=== PATIENT | female | born 1980 | race Caucasian/White ===

== ENCOUNTER 2018-09-25 11:57 | Outpatient (CLI) | payer MEDICAID, SELFPAY ==
--- NOTE | 2018-09-25 10:37 | DI.RAD_ITS ---
SYMPTOM/DIAGNOSIS: RT SHOULDER PAIN, M25.511 RIGHT SHOULDER: Five views were obtained. No bony or soft tissue abnormality is seen.
== END 2018-09-25 12:17 ==
PROVIDERS: PCP Nurse Practitioner; Visit Provider Nurse Practitioner
DX: M25.511 Pain in right shoulder (principal)
CPT/HCPCS: 73030

== ENCOUNTER 2018-10-01 12:54 | Emergency (ER) | payer MEDICAID, SELFPAY ==
[2018-10-01 13:01] VITALS: BP 120/66; PULSE 76; RESP 16; TEMP 36.6; O2SAT 99
--- NOTE | 2018-10-01 13:11 | W.ED.GENAD ---
Discharge Plan Disposition Patient Disposition: HOME Condition: Good Discharge Details Chief Complaint: Laceration Clinical Impression: Laceration of left middle finger Reason For Visit: lac Primary Care Provider: Mariel Kirkpatrick ED Provider: Karthik Casas Home Meds and New Rx's Prescriptions: Continue trazodone 50 mg tablet 50 mg PO HS Qty: 90 RF: 3 sertraline 100 mg tablet 150 mg PO DAILY Qty: 135 RF: 3 albuterol sulfate [ProAir HFA] 90 mcg/actuation HFA aerosol inhaler 2 puff Inhalation Q6H PRN Qty: 1 RF: 12 Discharge Instructions Instructions: Finger Laceration (ED) Additional Instructions: return to the emergency department in 7 days for suture removal. Return sooner if you have severe pain, redness spreading down the finger or yellow/white discharge from the wound Discharge Data Discharge Physician: Karthik Casas Medical Decision Making pt was cutting pumpking earlier and accidentally cut pad of left middle finger. No other injuries, states she is utd on tetanus vaccine. No evidence of tendon injury on exam. Will suture and d/c Differential Diagnosis laceration, abrasion HPI General Mode of arrival: ambulatory. Date/Time Provider Initiated Documentation: 10/01/18 13:05. Limitations to Documentation: no limitations. Information obtained by: patient. History of Present Illness 38 year old F presents to the emergency department with the chief complaint of left middle finger laceration, described as mild, with intensity rated at 2. Quality is described as aching, and is localized to the left and upper extremity. Patient started experiencing this hour(s) and it has been constant. No relieving factors improve symptom(s), No exacerbating factors reported . Patient notes no other symptoms.. Patient did receive the following treatments prior to arrival, none Related Data Home Medications Medication Instructions Recorded Confirmed albuterol sulfate HFA 90 2 puff INHALATION Q6H PRN #1 gm 09/25/18 10/01/18 mcg/actuation aerosol inhaler sertraline 100 mg tablet 150 mg PO DAILY #135 tab-cap 09/25/18 10/01/18 trazodone 50 mg tablet 50 mg PO HS #90 tab 09/25/18 10/01/18 Previous Rx's Medication Instructions Recorded albuterol sulfate HFA 90 2 puff INHALATION Q6H PRN #1 gm 10/25/18 mcg/actuation aerosol inhaler sertraline 100 mg tablet 150 mg PO DAILY #135 tab-cap 09/25/18 trazodone 50 mg tablet 50 mg PO HS #90 tab 09/25/18 Allergies Allergy/AdvReac Type Severity Reaction Status Date / Time aspirin AdvReac Mild causes Verified 10/01/18 13:04 asthma General Stated Complaint: Laceration BRITANY: 4 Review of Systems Review of Systems All systems reviewed & are unremarkable except as noted in HPI and below Constitutional Denies chills, Denies fever(s) and Denies weakness ENT Denies change in voice Cardiovascular Denies chest pain and Denies dyspnea Respiratory Denies dyspnea Gastrointestinal Denies abdominal pain, Denies nausea and Denies vomiting Genitourinary Denies dysuria Musculoskeletal Denies joint swelling Integumentary/Breasts Denies rash Neurologic Denies weakness [facility] Family History Mother Alcohol abuse Father No problems noted. Sister Essential hypertension Grandmother Breast cancer Son No problems noted. Other Autism Medical History Encounter for supervision of other normal , third trimester (Acute 11/23/15) Depression (Acute 09/23/14) Anxiety (Acute 09/24/17) Nexplanon in place (03/26/16) Social History Smoking/Tobacco Use Status: Current every day Surgical History section Exam Const General: no acute distress Orientation: alert [facility] Head: normal to inspection Ears: external ears normal General nose exam: external nose normal Mouth: moist mucous membranes Eyes General: appearance normal, both eyes and all related structures Neck Neck: normal visual inspection Resp Effort & Inspection: normal respiratory effort and able to speak in complete sentences Cardio Rate: regular rate Skin General skin exam: no rashes or lesions noted Neuro General: alert and oriented x3 Extrem General: other (1.5cm laceration on pad of left middle finger, intact sensation and full rom in extension and flexion) Psych Mental Status: mental status grossly normal Course Vital Signs Temperature 36.6 C 10/01/18 13:01 Pulse 76 10/01/18 13:01 Respiratory Rate 16 10/01/18 13:01 Blood Pressure 120/66 10/01/18 13:01 Pulse Oximetry 99 10/01/18 13:01 Temperature 36.6 C 10/01/18 13:01 Pulse 76 10/01/18 13:01 Respiratory Rate 16 10/01/18 13:01 Blood Pressure 120/66 10/01/18 13:01 Pulse Oximetry 99 10/01/18 13:01 Oxygen Delivery Method Room Air 10/01/18 13:01 Oxygen Flow Rate 0 10/01/18 13:01 Procedures Laceration Laceration 1: Site: upper extremity Side (If applicable): left Size (cm): 1.5 Description: linear Depth: simple, single layer Local Anesthetic: Lidocaine 1% Amount of anesthesia used (mL): 3 Pre-repair: wound explored and irrigated extensively Skin layer closed with: vicryl Size (cm): 5-0 Number of sutures: 3 Technique: simple, interrupted
== END 2018-10-01 13:39 | disposition home or self-care (01) ==
PROVIDERS: Emergency Provider Emergency Medicine; PCP Nurse Practitioner
DX: S61.213A Laceration without foreign body of left middle finger without damage to nail, initial encounter (principal); W26.8XXA Contact with other sharp object(s), not elsewhere classified, initial encounter
CPT/HCPCS: 12001

== ENCOUNTER 2018-10-14 10:11 | Emergency (ER) | payer MEDICAID, SELFPAY ==
[2018-10-14 10:16] VITALS: BP 107/68; PULSE 75; RESP 16; TEMP 36.7; O2SAT 99
--- NOTE | 2018-10-14 10:16 | ED.GENADUL_ITS ---
Discharge Plan Disposition Patient Disposition: HOME Condition: Good Discharge Details Chief Complaint: SutureRem Clinical Impression: Encounter for removal of sutures Primary Care Provider: Mariel Kirkpatrick ED Provider: Karthik Casas Home Meds and New Rx's Prescriptions: No Action trazodone 50 mg tablet 50 mg PO HS Qty: 90 RF: 3 sertraline 100 mg tablet 150 mg PO DAILY Qty: 135 RF: 3 albuterol sulfate [ProAir HFA] 90 mcg/actuation HFA aerosol inhaler 2 puff Inhalation Q6H PRN Qty: 1 RF: 12 Discharge Instructions Instructions: Stitches Removal (ED) Medical Decision Making PT comes in for suture removal of finger, has full rom of the finger without redness or discharge or pain. N oevidence of infection and full rom so doubt tendon injury. 3 sutures removed without problems Differential Diagnosis suture removal HPI General Mode of arrival: ambulatory . Date/Time Provider Initiated Documentation: 10/14/18 10:11 . Limitations to Documentation: no limitations . Information obtained by: patient . History of Present Illness 38 year old F presents to the emergency department with the chief complaint of suture removal, described as mild, Patient started experiencing this week(s ) (1) and it has been constant. Patient notes no other symptoms.. Related Data Home Medications Medication Instructions Recorded Confirmed albuterol sulfate HFA 90 2 puff INHALATION Q6H PRN #1 gm 09/25/18 10/01/18 mcg/actuation aerosol inhaler sertraline 100 mg tablet 150 mg PO DAILY #135 tab-cap 09/25/18 10/01/18 trazodone 50 mg tablet 50 mg PO HS #90 tab 09/25/18 10/01/18 Previous Rx's Medication Instructions Recorded albuterol sulfate HFA 90 2 puff INHALATION Q6H PRN #1 gm 09/25/18 mcg/actuation aerosol inhaler sertraline 100 mg tablet 150 mg PO DAILY #135 tab-cap 09/25/18 trazodone 50 mg tablet 50 mg PO HS #90 tab 09/25/18 Allergies Allergy/AdvReac Type Severity Reaction Status Date / Time aspirin AdvReac Mild causes Verified 10/01/18 13:04 asthma General BRITANY: 4 Review of Systems Review of Systems All systems reviewed & are unremarkable except as noted in HPI and below Constitutional Denies chills, Denies fever(s) and Denies weakness Eyes Denies loss of vision ENT Denies change in voice Cardiovascular Denies chest pain and Denies dyspnea Respiratory Denies dyspnea Gastrointestinal Denies abdominal pain, Denies nausea and Denies vomiting Integumentary/Breasts Denies rash Neurologic Denies loss of vision and Denies weakness Exam Const General: no acute distress Orientation: alert [facility] Head: normal to inspection Ears: external ears normal General nose exam: external nose normal Mouth: moist mucous membranes Eyes General: appearance normal, both eyes and all related structures Neck Neck: normal visual inspection Resp Effort & Inspection: normal respiratory effort and able to speak in complete sentences Cardio Rate: regular rate Skin General skin exam: no rashes or lesions noted Neuro General: alert and oriented x3 Psych Mental Status: mental status grossly normal
== END 2018-10-14 10:20 | disposition home or self-care (01) ==
PROVIDERS: Emergency Provider Emergency Medicine; PCP Nurse Practitioner
DX: S61.213D Laceration without foreign body of left middle finger without damage to nail, subsequent encounter (principal); W26.8XXD Contact with other sharp object(s), not elsewhere classified, subsequent encounter; Z48.02 Encounter for removal of sutures

== ENCOUNTER 2019-09-18 19:47 | Emergency (ER) | payer MEDICAID, SELFPAY ==
[2019-09-18 19:50] VITALS: BP 113/69; PULSE 97; RESP 16; TEMP 37.1; O2SAT 97
--- NOTE | 2019-09-18 20:14 | ED.GENADUL_ITS ---
Discharge Plan Disposition Patient Disposition: HOME Condition: Good Discharge Details Chief Complaint: FacialProb Clinical Impression: Contusion of face, Nasal pain Primary Care Provider: Mariel Kirkpatrick ED Provider: Mario De Los Santos Home Meds and New Rx's Prescriptions: No Action trazodone 50 mg tablet 50 mg PO HS Qty: 90 RF: 3 sertraline 100 mg tablet 150 mg PO DAILY Qty: 135 RF: 3 albuterol sulfate [ProAir HFA] 90 mcg/actuation HFA aerosol inhaler 2 puff Inhalation Q6H PRN Qty: 1 RF: 12 Discharge Instructions Instructions: Nasal Fracture (ED), Contusion in Adults (ED) Additional Instructions: The CT scan shows no evidence of an acute fracture, bleed, or fracture around your eye. No indication for antibiotics. Maximum dose is for pain medications are 800 mg of ibuprofen every 6 hours which I would recommend taking with food. Please also add 1000 mg of Tylenol every 6 hours. These are different medications can be taken together, or alternate every 3 hours. Ice can also help. If you notice any worsening of your symptoms, or any new symptoms such as vomiting, diarrhea, fever, chills, shortness of breath, chest pain, numbness, weakness, or fainting , please return immediately to the emergency department for reevaluation. Please follow up with your primary care provider as soon as possible for reassessment and reevaluation. As always, it was a pleasure participating in your medical care today. Referrals: Mariel Kirkpatrick, [employer] [Primary Care Provider] - Medical Decision Making This is a pleasant 39-year-old female with a past medical history of reactive airway disease as well as previous fracture of her nose and subsequent deformity who presents today for pain and slight deformity of the nose at she noticed yesterday morning when she woke up. She denies any trauma, assault. She states that she feels safe at home. She does not recall any incident that brought it about. Physical exam demonstrates slightly deviated right nose, no evidence of nasal septal hematoma, mild to moderate tenderness over the medial mid aspect of the nasal bridge as well as the medial aspect of the right lower orbit. No evidence of entrapment, hyphema, or other significant abnormality or trauma. Remainder of exam is otherwise unremarkable. She certainly does clinically demonstrate evidence of slight worsening of her chronic nasal fracture. We did discuss reduction although I do not think this would be significantly beneficial. At this time she would like to hold off on reduction as it has been greater than 24 hours since the event occurred. Will recommend Tylenol in addition to ibuprofen. Because of the tenderness over her right medial inferior orbit I am concerned for potential orbital fracture as well. With concern for fracture this does certainly increase the potential need for antibiotics. I do feel that CT scan is indicated to rule out acute fracture of this area. 8:[address] scan results have returned and per virtual radiology there is no evidence of acute fracture or dislocation. No evidence of intracranial bleed, no evidence of significant orbital fracture or entrapment. Signs and symptoms are clinically consistent with a contused nose, potential mild fracture. No indication for antibiotic use. We will recommend maximum dose NSAIDs at home, no indication for antibiotics at this time. Recommend close follow-up with PCP. Discussed red flags which to return. I have extensively reviewed the treatment plan and discharge instructions with the patient. I have addressed all patient concerns at this time. The patient was made aware of what symptoms to monitor for that would warrant a return to the emergency department. Discussed the plan with the patient, they demonstrate verbal understanding and agreement with our assessment and plan at this time. Exam(s) PROCEDURE INFORMATION: Exam: CT Maxillofacial Without Contrast Exam date and time: 09/18/2019 20:10 Clinical history: 39 years old, female; Face pain TECHNIQUE: Imaging protocol: Computed tomography images of the face without contrast. Radiation optimization: All CT scans at this facility use at least one of these dose optimization techniques: automated exposure control; mA and/or kV adjustment per patient size (includes targeted exams where dose is matched to clinical indication); or iterative reconstruction. COMPARISON: No relevant prior studies available. FINDINGS: Orbits: Orbits are normal. Globes are unremarkable. Sinuses: The ostiomeatal unit is patent bilaterally. Moderate-sized benign-appearing retention cyst in the left maxillary sinus. Minor mucosal thickening in the ethmoid air cells and frontal sinuses. Bones/joints: No acute maxillofacial fracture. Significant rightward deviation of the base of the nasal septum/maxillary spine, however no definite cortical step-off. Associated 5 mm right word deviation of the midportion of the right nasal septum. 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 Nasal cavity: Bilateral maryanne bullosa. Soft tissues: Unremarkable. IMPRESSION: 1. No acute maxillofacial fracture. A nonacute appearing deformity of the nasal septum and maxilla described. 2. Sinus disease. PROCEDURE INFORMATION: Exam: CT Head Without Contrast Exam date and time: 09/18/2019 20:10 Clinical history: 39 years old, female; Face pain TECHNIQUE: Imaging protocol: Computed tomography of the head without contrast. Radiation optimization: All CT scans at this facility use at least one of these dose optimization techniques: automated exposure control; mA and/or kV adjustment per patient size (includes targeted exams where dose is matched to clinical indication); or iterative reconstruction. COMPARISON: No relevant prior studies available. FINDINGS: Brain: No hemorrhage. No significant white matter disease. No edema. Ventricles: No ventriculomegaly. Bones/joints: No acute fracture. Sinuses: Regarding the paranasal sinuses please see maxillofacial CT. Mastoid air cells: No mastoid effusion. Soft tissues: No suspicious lesions. IMPRESSION: No acute intracranial findings. Dictated and Authenticated by: Maria T Cornejo MD. Ordering:OMEGA Martin MD HPI General Date/Time Provider Initiated Documentation: 09/18/19 19:53 . HPI Narrative: This is a 39-year-old female with a past medical history of reactive airway disease, and a previous broken nose who presents today for facial pain. Patient states that yesterday morning she woke up and noticed significant pain on the bridge of her nose, slight deformity of her nose. She had pain around her right orbit, and mild swelling and bruising in this area. She states that the nose feels slightly deformed compared to normal, however she does have a chronic deformity secondary to an old fracture. She denies any pain with movement of her eyes, vision changes, headache, neck pain, chest pain. She denies any trauma, falls, or trauma during her sleep. She denies any other complaints at this time. No other modifying factors. She has taken 800 mg of ibuprofen 3 times a day the last 24 hours with no significant improvement of her symptomatology. She denies any bloody nose, discharge, cough, shortness of breath. No other complaints at this time. Related Data Home Medications Medication Instructions Recorded Confirmed albuterol sulfate 90 mcg/actuation 2 puff INHALATION Q6H PRN #1 gm 09/25/18 09/18/19 aerosol inhaler sertraline 100 mg tablet 150 mg PO DAILY #135 tab-cap 09/25/18 09/18/19 trazodone 50 mg tablet 50 mg PO HS #90 tab 09/25/18 09/18/19 Previous Rx's Medication Instructions Recorded albuterol sulfate 90 mcg/actuation 2 puff INHALATION Q6H PRN #1 gm 09/25/18 aerosol inhaler sertraline 100 mg tablet 150 mg PO DAILY #135 tab-cap 09/25/18 trazodone 50 mg tablet 50 mg PO HS #90 tab 09/25/18 Allergies Allergy/AdvReac Type Severity Reaction Status Date / Time aspirin AdvReac Mild causes Verified 09/18/19 19:54 asthma General Stated Complaint: FacialProb BRITANY: 4 Review of Systems Review of Systems ROS Unobtainable: All systems reviewed & are unremarkable except as noted in HPI and below PFSH Surgical History (Updated 09/25/18 @ 10:02 by Mariel Kirkpatrick NP) section x4, last in 2011 Social History Smoking/Tobacco Use Status: Current every day Alcohol Intake: never Drug use: Occasionally Substance use type: does not use Do you feel safe in your relationship?: Yes Exam Narrative Exam Narrative: 1.Const: Well-nourished, Well-developed, appearing stated age 2.Eyes: PERRL, no conjunctival injection, and symmetrical lids. 3.ENT: Atraumatic external ears. Moist MM. Neck: Symmetric, trachea midline, No thyromegaly. There is no evidence of raccoon eyes, salcido sign, CSF rhinorrhea, mastoid tenderness, cranial crepitus, hemotympanum, exophthalmos, or hyphema. Patient demonstrates intact dentition with no signs of tooth avulsion or fracture, no signs of jaw deformity, no evidence of a LeFort's fracture, with an intact palate, orbital region. There is no evidence of a nasal septal hematoma. No proptosis. Jaw closes symmetrically. Airway is clear. There is notable tenderness over the mid nasal bridge, slight deformity to the right, there is also mild tenderness over the medial aspect of the right lower orbit. No evidence of entrapment. Normal gamble and planes of vision. 4.CVS: +S1/S2, No murmurs or gallops. Peripheral pulses 2+ and equal in all extremities. Brisk capillary refill in all extremities. 5.RESP: Unlabored respiratory effort. Clear to auscultation bilaterally. No wheezes rales or rhonchi 6.GI: Soft, Nontender/Nondistended, No hepatosplenomegaly. No guarding or rebound. 7.MSK: Normocephalic/Atraumatic, Extremities w/o deformity or ttp No cyanosis or clubbing, Normal movement of all extremities 8.Skin: Warm, Dry. No rashes or lesions. 9.Neuro: sheet cutter II-XII grossly intact. Sensation grossly intact, no focal neurologic deficits. 10.Psych: (AAO) x3. Appropriate mood and affect Course Vital Signs Vital signs: Vital Signs Temperature 37.1 C 09/18/19 19:50 Pulse 97 H 09/18/19 19:50 Respiratory Rate 16 09/18/19 19:50 Blood Pressure 113/69 09/18/19 19:50 Pulse Oximetry 97 09/18/19 19:50 Temperature 37.1 C 09/18/19 19:50 Temperature Source Skin 09/18/19 19:50 Pulse 97 H 09/18/19 19:50 Respiratory Rate 16 09/18/19 19:50 Respiratory Effort Non-Labored 09/18/19 19:54 Blood Pressure 113/69 09/18/19 19:50 Pulse Oximetry 97 09/18/19 19:50 Pain Level 10 09/18/19 19:54
[2019-09-18] MEDS: Ketorolac 15 MG/ML VIAL 30 MG IM (20:15)
[2019-09-18] MEDS: Acetaminophen 500 MG TAB 1000 MG PO (20:16)
--- NOTE | 2019-09-18 20:27 | DI.CT_ITS ---
EXAM: CT HEAD FACIAL WO CT HEAD FACIAL WO CLINICAL HISTORY: facial contusion and nose fx, r/o orbital fx. facial contusion and nose fx, r/o orbital fx TECHNIQUE: Imaging Protocol: Axial computed tomography images with coronal and sagittal reformatted images were created and reviewed COMPARISON: No exams were available for comparison FINDINGS: The ventricular system is normal in appearance. No evidence of acute intracranial hemorrhage, mass effect, or midline shift. The orbital structures are unremarkable. The temporal bone structures appear intact. Calvarium: Normal. Visualized Paranasal sinuses/Mastoids: Clear. Facial CT was also performed. No significant sinus pathology identified. Incidental bilateral conch a bullosa of the nasal turbinates. No orbital fracture. No facial fracture. Mandible appears intac t. Incidental small left maxillary retention cyst and minimal nonspecific mucoperiosteal thickening noted. IMPRESSION: Normal cranial CT No evidence of acute facial fracture. DATA REPOSITORY: All CT scans at this facility are submitted to the National Radiology Data Registry (NRDR) Dose Index Registry (DIR) with the [employer] ([employer]). RADIATION OPTIMIZATION: All CT scans at this facility use at least one of these dose optimization te chniques: automated exposure control; mA and/or kV adjustment per patient size (includes targeted exa ms where dose is matched to clinical indication); or iterative reconstruction.
--- NOTE | 2019-09-18 20:42 | DI.VRAD_ITS ---
PROCEDURE INFORMATION: Exam: CT Maxillofacial Without Contrast Exam date and time: 09/18/2019 20:10 Clinical history: 39 years old, female; Face pain TECHNIQUE: Imaging protocol: Computed tomography images of the face without contrast. Radiation optimization: All CT scans at this facility use at least one of these dose optimization techniques: automated exposure control; mA and/or kV adjustment per patient size (includes targeted exams where dose is matched to clinical indication); or iterative reconstruction. COMPARISON: No relevant prior studies available. FINDINGS: Orbits: Orbits are normal. Globes are unremarkable. Sinuses: The ostiomeatal unit is patent bilaterally. Moderate-sized benign-appearing retention cyst in the left maxillary sinus. Minor mucosal thickening in the ethmoid air cells and frontal sinuses. Bones/joints: No acute maxillofacial fracture. Significant rightward deviation of the base of the nasal septum/maxillary spine, however no definite cortical step-off. Associated 5 mm right word deviation of the midportion of the right nasal septum. 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 Nasal cavity: Bilateral maryanne bullosa. Soft tissues: Unremarkable. IMPRESSION: 1. No acute maxillofacial fracture. A nonacute appearing deformity of the nasal septum and maxilla described. 2. Sinus disease. PROCEDURE INFORMATION: Exam: CT Head Without Contrast Exam date and time: 09/18/2019 20:10 Clinical history: 39 years old, female; Face pain TECHNIQUE: Imaging protocol: Computed tomography of the head without contrast. Radiation optimization: All CT scans at this facility use at least one of these dose optimization techniques: automated exposure control; mA and/or kV adjustment per patient size (includes targeted exams where dose is matched to clinical indication); or iterative reconstruction. COMPARISON: No relevant prior studies available. FINDINGS: Brain: No hemorrhage. No significant white matter disease. No edema. Ventricles: No ventriculomegaly. Bones/joints: No acute fracture. Sinuses: Regarding the paranasal sinuses please see maxillofacial CT. Mastoid air cells: No mastoid effusion. Soft tissues: No suspicious lesions. IMPRESSION: No acute intracranial findings. Dictated and Authenticated by: Maria T Cornejo MD. Ordering:OMEGA Martin MD
== END 2019-09-18 21:05 | disposition home or self-care (01) ==
PROVIDERS: Emergency Provider Student in an Organized Health Care Education/Training Program; PCP Nurse Practitioner
DX: S00.83XA Contusion of other part of head, initial encounter (principal); S09.92XA Unspecified injury of nose, initial encounter; X58.XXXA Exposure to other specified factors, initial encounter
CPT/HCPCS: 96372; 99284; 70450; 70486; J1885

== ENCOUNTER 2021-03-12 17:17 | Emergency (ER) | payer MEDICAID, SELFPAY ==
[2021-03-12 17:21] VITALS: BP 126/63; PULSE 72; RESP 20; TEMP 36.6; O2SAT 100
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
--- NOTE | 2021-03-12 17:38 | DI.RAD_ITS ---
EXAM: XR WRIST RT COMPLETE CLINICAL HISTORY: Right Wrist Injury . TECHNIQUE: 2D digital imaging was performed. COMPARISON: No exams were available for comparison FINDINGS: There is no evidence of fracture or dislocation. No ulnar variance. Bone density normal. No radiop aque foreign body. IMPRESSION: No significant radiographic findings. DATA REPOSITORY: RADIATION DOSE DELIVERED:
--- NOTE | 2021-03-12 17:50 | DI.VRAD_ITS ---
PROCEDURE INFORMATION: Exam: XR Right Wrist Exam date and time: 03/12/2021 5:28 PM Age: 41 years old Clinical indication: Patient HX: Right wrist pain after blunt trauma to wrist TECHNIQUE: Imaging protocol: XR Right wrist. Views: 3 or more views. COMPARISON: CR RIGHT HAND COMPLETE 07/07/2017 7:49 PM FINDINGS: Bones/joints: Normal. Soft tissues: Normal. IMPRESSION: No acute findings. Dictated and Authenticated by: Long Butler MD. Ordering:KAIDEN Holliday MD
== END 2021-03-12 18:10 | disposition home or self-care (01) ==
PROVIDERS: Emergency Provider Registered Nurse Emergency; PCP Nurse Practitioner
DX: S60.211A Contusion of right wrist, initial encounter (principal); W22.09XA Striking against other stationary object, initial encounter
CPT/HCPCS: 29125; 99283; 73110; 99282

== ENCOUNTER 2021-12-25 01:52 | Outpatient (CLI) | payer MEDICAID, SELFPAY ==
--- NOTE | 2021-12-25 08:15 | DI.MAMMO_ITS ---
Exam(s) MAMMO SCREENING EXAM: MAMMO SCREENING CLINICAL HISTORY: screening,z12.39. TECHNIQUE: Bilateral full field digital CC and MLO mammographic images were obtained with 3D tomosyn thesis and utilizing computer aided detection (CAD). COMPARISON: Prior 2013 mammogram was reviewed. FINDINGS: Fibroglandular tissue is again noted be moderately dense, this somewhat decreasing the sensitivity of the mammogram for finding hidden underlying lesions. There are no obvious spiculated masses nor malignant appearing microcalcification groups. There is no significant architectural distortion nor skin thickening-retraction. IMPRESSION: No obvious radiographic evidence of malignancy. BI-RADS Category 2 - Benign Findings Breast Density - Category C - Heterogeneously dense Breast density Category C or D implies that the patient has dense breast tissue. Dense breast tissue can make it harder to find cancer on a mammogram. Dense breast tissue is also associated with an incr eased risk of breast cancer. This information about the result of the mammogram report was provided to the patient to raise their awareness. Use this report when you speak with the patient about their risks for breast cancer, which includes their family history. At that time, you may recommend additional screening tests (Ultrasoun d or MRI) as these tests may add significant information. A negative radiographic report should not delay biopsy if a dominant or clinically suspicious mass is present. Up to ten percent of cancers are not identified on mammography. A negative report may reinforce clinical impression. Adenosis and dense breasts may obscure an underlying neoplasm. False positive reports average 6 to 10%. Patient will receive a letter notifying them of these results.
== END 2021-12-25 02:12 ==
PROVIDERS: PCP Nurse Practitioner; Visit Provider Nurse Practitioner
DX: Z12.31 Encounter for screening mammogram for malignant neoplasm of breast (principal)
CPT/HCPCS: 77063; 77067

== ENCOUNTER 2022-11-21 12:02 | Outpatient (REF) | payer MEDICAID, SELFPAY ==
--- NOTE | 2022-11-21 11:35 | PAPFT_PTH ---
PATIENT: Eleni Hoang LOC: [facility]#:[id number] AGE/SX: 42/F ROOM: RE11/21/[address]: Alesha Menjivar MD : 1980 BED: DIS: 11/21/2022 SPEC #: [id number] RECD: 11/21/22 17:42 STATUS: RANDY REQ #: [id number] MICAELA: 11/21/22 11:[address]: Alesha Menjivar DEPT: [facility] Cytology RECD BY: Anahi Ferguson ENTERED: 11/21/22 17:43 SP TYPE: PAPFT OTHR DR: Mariel Kirkpatrick APRN Tissues: 1 - CX/ENDOCX FOR PAP SMEARS Procedures: PAP THIN PREP/UVM Screening HPV DNA PROBE Comments: [id number]
== END 2022-11-21 12:03 | disposition home or self-care (01) ==
LOC: LBN 12:02
PROVIDERS: PCP Nurse Practitioner; Visit Provider Obstetrics & Gynecology
DX: Z12.4 Encounter for screening for malignant neoplasm of cervix (principal); Z11.51 Encounter for screening for human papillomavirus (HPV)
CPT/HCPCS: 88142; 87624

== ENCOUNTER 2022-12-05 04:45 | Outpatient (CLI) | payer MEDICAID, SELFPAY ==
[2022-12-05 08:09] LABS: HCT 39.7 % (36.0-46.0); HGB 13.2 g/dL (11.2-15.7); MCH 31.3 pg (27.0-33.0); MCHC 33.2 % (32.0-36.0); MCV 94 fL (80-95); MPV 9.3 fL (8.0-11.0); Platelet Count 345 10^3/uL (130-400); RBC 4.22 10^6/uL (3.93-5.22); RDW 13.1 % (11.7-14.6); RDW-SD 45.3 fL; WBC 10.64 10^3/uL (4.4-10.8)
[2022-12-05 08:48] LABS: ALT 20 U/L (14-59); AST 24 U/L (15-37); Albumin 2.8 g/dL (3.4-5.0); Alkaline Phosphatase 80 U/L (46-116); Anion Gap 8.6 mmol/L (3-11); BUN 10 mg/dL (7-18); Bilirubin, Total 0.2 mg/dL (0.2-1.0); CO2 26.4 mmol/L (21.0-32.0); CREATININE 1.1 mg/dL (0.55-1.02); Calcium 8.4 mg/dL (8.5-10.1); Calculated LDL 76 mg/dL (<100); Chloride 105 mmol/L (98-107); Cholesterol 135 mg/dL (<200); Estimated GFR 64.34 (mL/min/1.73m2); Glucose 95 mg/dL (74-106); HDL Cholesterol 44 mg/dL (40-60); Potassium 3.8 mmol/L (3.5-5.1); Sodium 140 mmol/L (136-145); Triglyceride 75 mg/dL (<150)
== END 2022-12-05 04:46 | disposition home or self-care (01) ==
LOC: LBO 04:45
PROVIDERS: PCP Nurse Practitioner; Visit Provider Nurse Practitioner
DX: F41.9 Anxiety disorder, unspecified (principal); F17.210 Nicotine dependence, cigarettes, uncomplicated; Z13.220 Encounter for screening for lipoid disorders
CPT/HCPCS: 36415; 80053; 80061; 85027

== ENCOUNTER 2022-12-12 09:40 | Outpatient (CLI) | payer MEDICAID, SELFPAY ==
--- NOTE | 2022-12-12 09:35 | DI.RAD_ITS ---
Exam(s) XR CHEST 2V PA LATERAL EXAM: XR CHEST 2V PA LATERAL CLINICAL HISTORY: cough, wheeze, SOB for about 3 weeks, tobacco abuse, Z72.0, R05.9, R06.02 TECHNIQUE: 2D digital imaging was performed. COMPARISON: CR XR shoulder RT complete 2+V from 09/25/2018 FINDINGS: HEART: Normal size. Aorta: Not dilated. PULMONARY VASCULATURE: Normal. LUNGS: Clear. PLEURAL SPACE: No pleural effusion or pneumothorax. BONE:Unremarkable for age. IMPRESSION: No acute abnormality. DATA REPOSITORY: RADIATION DOSE DELIVERED:
== END 2022-12-12 10:00 ==
LOC: DI 09:40
PROVIDERS: PCP Nurse Practitioner; Visit Provider Nurse Practitioner
DX: J45.909 Unspecified asthma, uncomplicated (principal); R05.9 Cough, unspecified; R06.02 Shortness of breath; R06.2 Wheezing; Z72.0 Tobacco use
CPT/HCPCS: 71046

== ENCOUNTER 2022-12-26 01:18 | Outpatient (CLI) | payer MEDICAID, SELFPAY ==
--- NOTE | 2022-12-26 09:08 | DI.MAMMO_ITS ---
Exam(s) MAMMO SCREENING EXAM: MAMMO SCREENING CLINICAL HISTORY: screening TECHNIQUE: Bilateral full field digital CC and MLO mammographic images were obtained with 3D tomosyn thesis and utilizing computer aided detection (CAD). COMPARISON: 2013 through 2021 FINDINGS: Masses/Architectural Distortion: None seen. Microcalcifications: No suspicious pleomorphic-type are seen. Stable appearance of punctate, benign-a ppearing calcifications in the central left breast. Skin Thickening/Nipple Retraction: None. IMPRESSION: 1. No significant interval change with no specific features of malignancy noted. 2. Unless there is more urgent need, screening mammography is recommended, as per [employer] guidelines. BI-RADS Category 2 - Benign Findings Breast Density - Category C - Heterogeneously dense Breast density category C or D implies that the patient has dense breast tissue. Dense breast tissue is very common and is not abnormal but dense breast tissue can make it harder to find cancer on a ma mmogram. Also, dense breast tissue may increase their breast cancer risk. This information about the result of the mammogram report was provided to the patient to raise their awareness. Use this report when you speak with the patient about their risks for breast cancer, which includes their family hist ory. At that time, you may recommend for more screening tests (Ultrasound or MRI) as they might be us eful based on their risk. A negative radiographic report should not delay biopsy if a dominant or clinically suspicious mass is present. Up to ten percent of cancers are not identified on mammography. A negative report may reinforce clinical impression. Adenosis and dense breasts may obscure an underlying neoplasm. False positive reports average 6 to 10%. Patient will receive a letter notifying them of these results.
== END 2022-12-26 01:38 ==
LOC: DI 01:19
PROVIDERS: PCP Nurse Practitioner; Visit Provider Obstetrics & Gynecology
DX: Z12.31 Encounter for screening mammogram for malignant neoplasm of breast (principal); N60.82 Other benign mammary dysplasias of left breast
CPT/HCPCS: 77063; 77067

== ENCOUNTER 2025-06-08 11:33 | Outpatient (CLI) | payer MEDICAID, SELFPAY ==
[2025-06-08 12:08] LABS: HCG Quant, Pregnancy < 1 mIU/mL (1-3)
== END 2025-06-08 11:34 | disposition home or self-care (01) ==
LOC: LBO 11:34
PROVIDERS: PCP Nurse Practitioner; Visit Provider Advanced Practice Midwife
DX: Z32.01 Encounter for pregnancy test, result positive (principal)
CPT/HCPCS: 36415; 84702

== ENCOUNTER 2025-10-04 08:23 | Emergency (ER) | payer MEDICAID, SELFPAY ==
[2025-10-04 08:27] VITALS: BP 134/85; PULSE 79; RESP 16; TEMP 36.7; O2SAT 98
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
--- NOTE | 2025-10-04 08:45 | DI.RAD_ITS ---
Exam(s) XR SHOULDER LT COMPLETE 2+V EXAM: XR SHOULDER LT COMPLETE 2+V CLINICAL HISTORY: Left shoulder pain 10 days status post strain. TECHNIQUE: 2D digital imaging was performed of the left shoulder. Four images were obtained. AP, Grashey, Y-view and axillary views were obtained. COMPARISON: No exams were available for comparison FINDINGS: BONES: No acute fracture is present. No bony destructive lesion is seen. JOINTS: No dislocation present. The glenohumeral joint is well maintained. There is mild degenerative change seen at the acromioclavicular joint. SOFT TISSUE: Normal. IMPRESSION: There is no acute abnormality. DATA REPOSITORY: RADIATION DOSE DELIVERED:
[2025-10-04] MEDS: Lidocaine 5% Patch 1 PATCH TP (09:10)
[2025-10-04] MEDS: Acetaminophen 325 MG TAB 650 MG PO (09:10)
[2025-10-04] MEDS: Ibuprofen 400 MG TAB PO (09:10)
== END 2025-10-04 10:01 | disposition home or self-care (01) ==
PROVIDERS: Emergency Provider Emergency Medicine; PCP Nurse Practitioner
DX: M25.512 Pain in left shoulder (principal)
CPT/HCPCS: 99283 ×2; 81025; 73030

== ENCOUNTER → 2025-11-05 00:26 | Outpatient (CLI) | payer MEDICAID, SELFPAY ==
--- NOTE | 2025-11-05 06:15 | DI.MRI_ITS ---
Exam(s) MR UPPER JOINT LT WO EXAM: MR UPPER JOINT LT WO CLINICAL HISTORY: ACUTE L SHOULDER PAIN,LT ROTATOR CUFF TEAR,M75.102,M25.512 TECHNIQUE: Multiplanar multisequence MRI of the shoulder was performed. COMPARISON: CR XR SHOULDER LT COMPLETE 2+V from 10/04/2025 FINDINGS: MARROW:There is no evidence of fracture, Hill-Sachs deformity, nor ominous osseous lesions. GLENOHUMERAL JOINT: No joint effusion nor obvious loose intra-articular bodies. No chondral defects. No osteophytes. No degenerative subarticular cysts. ROTATOR CUFF MECHANISM: AC JOINT/ACROMIUM: There are mild degenerative changes in the AC joint. There is some impingement upon the supraspinatus at this level.. There is no evidence of os acromiale. Supraspinatus: Intact. No evidence of tear nor muscle atrophy. Infraspinatus: Intact. No evidence of tear nor muscle atrophy. Teres Minor: Intact. No evidence of tear nor muscle atrophy. Subscapularis/anterior cuff: There is focal tendinitis signal in the superior aspect of the distal tendon just anterior to the lesser tuberosity.. No muscle atrophy. BICEPS TENDON: Appears to exhibit an element of spine split tearing in the intertubercular groove. The intra-articular aspect appears intact. LABRUM: There is abnormal signal consistent with tear in the superior labrum posterior to the biceps insertion consistent with SLAP tear. Posterior labrum appears intact as does the inferior labrum. There is some increased signal seen on the humeral side of the inferior glenohumeral ligament as seen on the coronal images. There appears to be some tearing in the anterior labrum above the equator. Inferiorly there does not appear to be obvious disruption of the scapular periosteum and no abnormal intraosseous signal in the anteroinferior osseous glenoid. There is no evidence of paralabral cyst. There is no muscle atrophy evident. IMPRESSION: 1. No evidence of significant tendinitis nor tears of the supraspinatus and infraspinatus. 2. Findings seen to be concentrated anteriorly with focal signal abnormality consistent with tendinitis and/or partial tearing in the subscapularis tendon at the level of the lesser tuberosity and there is also attenuation with suggestion of split tearing of the biceps tendon limited to the intertubercular groove. There is also a SLAP-type labral tear evident and suggestion of tearing of the superior aspect of the anterior labrum. No evidence of significant paralabral cyst. No evidence of bony Bankart lesion. 3. No evidence of muscle atrophy nor de nerve a blake signal within the musculature of the rotator cuff mechanism. 4. No significant degenerative changes in the glenohumeral joint. Mild degenerative changes evident in the AC joint. DATA REPOSITORY:
== END ==
LOC: DI 00:26
PROVIDERS: PCP Nurse Practitioner; Visit Provider Student in an Organized Health Care Education/Training Program
DX: M75.102 Unspecified rotator cuff tear or rupture of left shoulder, not specified as traumatic (principal); M25.512 Pain in left shoulder
CPT/HCPCS: 73221

== ENCOUNTER 2025-11-18 07:33 | Emergency (ER) | payer MEDICAID, SELFPAY ==
[2025-11-18 09:39] VITALS: BP 133/82; PULSE 67; TEMP 37.1; O2SAT 97
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
== END 2025-11-18 09:44 | disposition home or self-care (01) ==
PROVIDERS: Emergency Provider Physician Assistant; PCP Nurse Practitioner
DX: M54.12 Radiculopathy, cervical region (principal)
CPT/HCPCS: 99283 ×2